=== PATIENT | male | born 1985 | race African-American/Black ===

== ENCOUNTER 2016-03-13 05:26 | Emergency (ER) | payer OTHER ==
[2016-03-13 05:36] VITALS: BP 172/81; PULSE 105; TEMP 98.1; BMI 30.5
[2016-03-13] MEDS ORDERED: IBUPROFEN 800 MG TAB PO ONE (05:45)
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
== END 2016-03-13 06:41 | disposition home or self-care (01) ==
LOC: ED 05:26
DX: S33.5XXA Sprain of ligaments of lumbar spine, initial encounter (principal); V49.9XXA Car occupant (driver) (passenger) injured in unspecified traffic accident, initial encounter
CPT/HCPCS: 72110; 99282; J3490